=== PATIENT | female | born 1950 | race Caucasian/White ===

== ENCOUNTER 2016-07-22 19:50 | Inpatient (IN) | payer OTHER ==
--- NOTE | ~2016-07-22 | CN ---
Consultation Report [facility] [address] [place]. [address] NAME: ISI RICE : 54 STATUS : ADM Corinna PAT#: [id number] AGE: 66 ADM/REG DATE : 07/22/16 MR#: [id number] REPORT SERV DATE: 07/23/16 DICTATED BY: DEYVI BOOTH DATE: 07/23/16 REPORT STATUS : Draft TRANSCRIBED BY: MODL DATE: 07/23/16 GI CONSULTATION DATE OF CONSULTATION: 07/23/2016 REASON FOR CONSULTATION: Evaluation and management of upper GI bleeding. HISTORY OF PRESENT ILLNESS: Ms Isi Waggoner is a pleasant 66-year-old female patient, who has been seen by Dr. Silva in the distant past, who presented to [facility] with a chief complaint of nausea, vomiting, coffee-grounds emesis, as well as dark black stools. The patient gives a history of symptom onset yesterday with nausea and vomiting. She states she vomited up one episode of coffee-grounds. She had epigastric periumbilical abdominal pain. Subsequently, she began to have loose dark tarry stools. She states multiple, five to six. She was weak and felt like her heart was "pounding." She states that for two days, she has not been feeling well, but her pain and the bleeding started yesterday. She does have a history of right breast cancer, having undergone lumpectomy as well as radiation therapy, and currently is on Arimidex. She has a history of recent what she states it is an injury to her left leg. She has osteoarthritis and has been on Mobic for the last three weeks as well as she admits to taking around three to four Excedrin a week for various aches and pains. I have discussed with the patient, we will plan on upper endoscopy today. Risks, benefits, alternatives, and complications were detailed for her to include, but not limited to risk of bleeding, perforation, infection, reaction to medication, as well as cardiac and pulmonary side effects. She is agreeable to proceed. She does give a history of in 2014, she had an upper GI bleed secondary to duodenal ulcer, which was clipped while she was at [facility] undergoing treatment for her breast cancer. This procedure was done by Dr. Manzo. PAST MEDICAL HISTORY: She has a past medical history positive for right breast invasive ductal carcinoma. Undergoing right breast segmentectomy, right breast deep margin removal as well as axillary sentinel lymph node biopsy. Upper GI bleed secondary to peptic ulcer disease. She has a history of migraines, which she takes Excedrin for intra-ocular lens implants. Cardiac murmur, right partial knee replacement, osteoarthritis, cholecystectomy, GERD, IBS, appendectomy, hysterectomy, renal stones, rosacea, and depression. SOCIAL HISTORY: . Lives independently. Denies alcohol, tobacco, or illicits. Positive for NSAIDs. FAMILY HISTORY: Noncontributory from a GI standpoint. ALLERGIES: TORADOL, PHENOBARBITAL, CODEINE, TRAMADOL, AND PROTONIX. HOME MEDICATIONS: Arimidex, Mobic, and Excedrin. REVIEW OF SYSTEMS: Consultation Report [place] [address] [place]. [address] NAME: ISI RICE : 54 STATUS : ADM Corinna PAT#: [id number] AGE: 66 ADM/REG DATE : 07/22/16 MR#: [id number] REPORT SERV DATE: 07/23/16 DICTATED BY: DEYVI BOOTH DATE: 07/23/16 REPORT STATUS : Draft TRANSCRIBED BY: MODDallas DATE: 07/23/16 A 10-point review of systems has been obtained with pertinent positives being addressed in the history of present illness. PHYSICAL EXAMINATION: VITAL SIGNS: Temperature 98.6, pulse 88, respirations 20, and blood pressure is 150/65. NEUROLOGIC: Reveals an alert female, resting in bed with no focal deficits. GENERAL: Cooperative, in no apparent distress. Awake, alert, and oriented x3. HEAD, EARS, EYES, NOSE, AND THROAT: Anicteric. Pupils are equal, round, and reactive to light and accommodation. Normocephalic and atraumatic. NECK: No JVD. No palpable nodes. Supple. LUNGS: Diminished in the bases. Clear in the upper lobes. Normal respiratory effort exhibited. Equal expansion. CARDIOVASCULAR: Regular rate and rhythm. ABDOMEN: Soft, mildly tender to palpation in the epigastric region without rebound or guarding. No organomegaly appreciated. Active bowel sounds. EXTREMITIES: No edema. Normal distal pulses. SKIN: Warm, dry, and intact, but pale. PERTINENT LABORATORY DATA: Sodium 143, potassium 4.6, BUN is 36, and creatinine 0.91. White count 19, hemoglobin 10.9, hematocrit 33.1, and platelet count is 301, with an INR of 1.2. ASSESSMENT: 1. Upper gastrointestinal bleed, melena with coffee-ground emesis, acute onset, 07/22/2016. She has a history of Mobic use for the last three weeks as well as Excedrin intermittently for headaches. 2. Abdominal pain, epigastric. 3. Nausea and vomiting. 4. History of right breast cancer. 5. History of gastrointestinal bleed in 2014, treated by Dr. Manzo at [facility] with a "duodenal clip.". PLAN: 1. Reglan 10 mg IV x1 now. 2. Serial H and H. 3. EGD today. 4. Transfuse as needed. 5. Continue Protonix drip. We will follow. Other recommendations after endoscopy. NILSON/SUDHIR ANABEL Yousif Consultation Report [address] [place]. [address] NAME: ISI RICE : 54 STATUS : ADM Corinna PAT#: [id number] AGE: 66 ADM/REG DATE : 07/22/16 MR#: [id number] REPORT SERV DATE: 07/23/16 DICTATED BY: DEYVI BOOTH DATE: 07/23/16 REPORT STATUS : Draft TRANSCRIBED BY: SUDHIR DATE: 07/23/16 / [id number] CC: Daljit Parmar MD
--- NOTE | ~2016-07-22 | DS ---
Discharge Summary [place] [id number] [facility] [place]. [address] NAME: MARYCARMEN RICE : 54 STATUS : ADM Corinna PAT#: [id number] AGE: 66 ADM/REG DATE : 07/22/16 MR#: [id number] REPORT SERV DATE: 07/26/16 DICTATED BY: JACK PARMAR DATE: 07/26/16 REPORT STATUS : Draft TRANSCRIBED BY: MODL DATE: 07/26/16 ADMISSION DATE: 07/22/2016 DISCHARGE DATE: 07/26/2016 REASON FOR ADMISSION: Melena secondary to upper GI bleed. HISTORY OF PRESENT ILLNESS: Please refer to Dr. Ge Pinon's history and physical dated 07/23/2016, for complete details regarding the patient's admission. The patient is admitted to the hospitalist service for management and evaluation of her upper GI bleed. HOSPITAL COURSE: The patient presented with an upper GI bleed, started on Protonix drip. Dr. Babin with [facility] performed an EGD and found hematin in the gastric body and 1 duodenal ulcer that was spurting blood. He injected it and treated it by a fulguration and a clip was placed. Recommended continuing an IV Protonix drip for two more days. The patient's hemoglobin was continuously checked every eight hours. She did have a mild drop in hemoglobin and was transfused 1 unit of packed red blood cell which has been stable since then. Her Protonix was transitioned from IV drip to IV Protonix twice a day on the . Her hemoglobin has been stable. She has been tolerating a diet. She had some mild epigastric pain which has improved since admission. GI Medicine has signed off and recommended following up with Dr. Silva or Dr. Manzo at [facility] in 4 to 6 weeks for a CBC check. Dr. Babin recommended continuing Protonix 40 mg twice a day for 12 weeks. A prescription has been given to her. She has reached maximal hospitalization and will be discharged today in stable condition. DISCHARGE DIAGNOSES: 1. Melena secondary to upper GI bleed secondary to a duodenal ulcer, status post injection, fulguration, and clip. 2. Acute blood loss anemia status post packed red blood cell and now stable. 3. Nausea and vomiting resolved. 4. History of breast cancer, currently on Arimidex. PROCEDURES: Include EGD and packed red blood cell transfusion. CONSULTATION: With James MANUEL. DISCHARGE MEDICATIONS: Include Protonix 40 mg twice a day for 12 weeks; Arimidex 1 mg at bedtime; and Mobic 7.5 mg daily. She has been told to hold off on any NSAIDs. DICTATED BY: MD DEANNA Colmenares/SUDHIR Discharge Summary [address] [place] [address] NAME: MARYCARMEN RICE : 54 STATUS : ADM Corinna PAT#: [id number] AGE: 66 ADM/REG DATE : 07/22/16 MR#: [id number] REPORT SERV DATE: 07/26/16 DICTATED BY: JACK PARMAR DATE: 07/26/16 REPORT STATUS : Draft TRANSCRIBED BY: SUDHIR DATE: 07/26/16 Jack Parmar MD / [id number] CC: MD Cyndi Colmenares III, M.D.
--- NOTE | ~2016-07-22 | HP ---
History And Physical [place] [id number] [facility] [place]. [address] NAME: MARYCARMEN MARCH : 54 STATUS : ADM Corinna PAT#: [id number] AGE: 66 ADM/REG DATE : 07/22/16 MR#: [id number] REPORT SERV DATE: 07/23/16 DICTATED BY: GE DUDLEY DATE: 07/22/16 REPORT STATUS : Draft TRANSCRIBED BY: MODL DATE: 07/22/16 DATE OF ADMISSION: 07/22/2016 CHIEF COMPLAINT: Black tarry stools per rectum. HISTORY OF PRESENT ILLNESS: This is a 66-year-old female, who presents to the emergency room at [facility] with the above-mentioned complaint. History is obtained from the patient and reviewing data available on the [employer] system. According to Mrs. March it all started yesterday in the evening when she started feeling poorly. 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 In the vomitus, there was some black stuff according to her. Soon after she had to go to the bathroom and when she did she again threw up and then passed black tarry stools per rectum. She had two such episodes again and knew she was bleeding as she has had a history of peptic ulcer disease and has had GI bleeding in the past. She does not drive but managed to call one of her neighbors and was brought here to be evaluated. In the emergency room, indeed stool Hemoccult was positive. She had black tarry stools. She also had anemia probably secondary to a blood loss. An additional workup revealed she had leukocytosis and a lactate of 4.3 as well. Hospitalist Service has asked to admit her for further evaluation and treatment. At the time of my evaluation, she denied any chest pain or palpitations. She had no orthopnea. She has had no cough, hemoptysis, night sweats, or weight loss. She has had no falls or loss of consciousness. She denied any fevers or chills. Did have nausea and vomiting without any hematemesis or hematuria. No other history of recent travel or exposures other than those mentioned above. PAST MEDICAL HISTORY: Significant for history of peptic ulcer disease and gastrointestinal bleed in the past. SOCIAL HISTORY: She does not smoke, drink, or use recreational drugs. FAMILY HISTORY: Noncontributory. MEDICATIONS: At home were reviewed by me in the chart today and reordered by me. REVIEW OF SYSTEMS: As in history of present illness. All other systems were reviewed in detail and are quite unremarkable. PHYSICAL EXAMINATION: GENERAL: This is a pleasant 66-year old, not in any acute distress. HEENT: Head is atraumatic, normocephalic. She is alert, awake, oriented to time, place, and person. Pupils are equal, reacting to light and accommodating. External ocular muscles are intact. Membranes are moist and pink. Sclerae are nonicteric. History And Physical [address] [address] NAME: MARYCARMEN MARCH : 54 STATUS : ADM Corinna PAT#: [id number] AGE: 66 ADM/REG DATE : 07/22/16 MR#: [id number] REPORT SERV DATE: 07/23/16 DICTATED BY: GE DUDLEY DATE: 07/22/16 REPORT STATUS : Draft TRANSCRIBED BY: SUDHIR DATE: 07/22/16 NECK: Supple with no jugular venous distention, lymphadenopathy, or thyromegaly. LUNGS: Clear to auscultation with no wheezes, rubs, or crackles. HEART: Heart sounds were regular with no murmurs, rubs, or gallops. ABDOMEN: Soft, nontender. Bowel sounds are present. EXTREMITIES: Showed no cyanosis, clubbing, or edema. NEUROLOGIC: Grossly intact. No focal sensory or motor deficits. Higher functions appeared intact. Gait was not examined at this time. VITAL SIGNS: Her vital signs today showed a temperature of 98.0, pulse 123, respirations 18 a minute, blood pressure was 120/61, oxygen saturations were 96%, breathing 2 L of oxygen via nasal cannula. LABORATORY DATA: Reviewed on the [employer] system showed a sodium of 143, potassium 4.6, chloride 110, CO2 of 26, BUN 36, and creatinine was 0.91. Glucose was 266. CBC showed a white blood cell count of 19,000, hemoglobin was 10.9, hematocrit 33.1, and platelet count was 301,000. Her lactate level was 4.3 today. Urinalysis showed small leukocyte esterase, nitrite was negative. There were 16 wbc's and rare bacteria. No imaging was performed in the ER today. A 12-lead EKG done in emergency room was reviewed and interpreted by me. Per my interpretation, there is sinus tachycardia at a rate of [address] changes. Again stool Hemoccult was positive in the ER. IMPRESSION: 1. Melena. 2. Upper GI bleeding. 3. Anemia secondary to blood loss. 4. Leukocytosis. 5. Urinary tract infection. 6. History of GI bleed. 7. Peptic ulcer disease. PLAN: We will admit Mrs. March to the Hospitalist Service with telemetry for a 24-hour observation period. We will keep her n.p.o. for now. Start her on Protonix infusion and go ahead and consult Gastroenterology Service to see her in the morning. Meanwhile, we will follow serial hemoglobin and hematocrit levels, type cross and transfuse if needed. We will of course, stop her NSAIDs and other medications that she has been on. We will also start her on fluids for volume resuscitation. Follow chemistry and CBC in the morning. We will also place her on broad-spectrum IV antibiotics for possible urinary tract infection and again re-evaluate a CBC in the morning. We will place her on SCDs for DVT prophylaxis while she is here. I have discussed the above plans with the patient. Her questions were answered and she is agreeable to the above recommendations. Hospitalist Service will be following her during her stay here. /SUDHIR Ge Dudley M.D. History And Physical [address] [address] NAME: MARYCARMEN MARCH MICHAEL : 54 STATUS : ADM Corinna PAT#: [id number] AGE: 66 ADM/REG DATE : 07/22/16 MR#: [id number] REPORT SERV DATE: 07/23/16 DICTATED BY: GE DUDLEY DATE: 07/22/16 REPORT STATUS : Draft TRANSCRIBED BY: SUDHIR DATE: 07/22/16 / [id number] CC: Daljit Parmar MD
--- NOTE | ~2016-07-22 | EGD ---
EGD REPORT [facility] [address] [place]. [address] NAME: ISI MARCH : 54 STATUS : ADM Corinna PAT#: [id number] AGE: 66 ADM/REG DATE : 07/22/16 MR#: [id number] REPORT SERV DATE: 07/23/16 DICTATED BY: BRAD BELL DATE: 07/23/16 REPORT STATUS : Draft TRANSCRIBED BY: [facility] DATE: 07/23/16 Endoscopy Center Patient Name: Isi March Date of : 1950 Attending MD: BRAD BELL MD Procedure Date No Time: 07/23/2016 Procedure: Upper GI endoscopy Indications: Melena Medicines: Monitored Anesthesia Care Complications: No immediate complications. Estimated blood loss: Minimal. Procedure: Pre-Anesthesia Assessment: - ASA Grade Assessment: II - A patient with mild systemic disease. After obtaining informed consent, the endoscope was passed under direct vision. Throughout the procedure, the patient's blood pressure, pulse, and oxygen saturations were monitored continuously. The GIF [id number] was introduced through the mouth, and advanced to the second part of duodenum. The upper GI endoscopy was accomplished without difficulty. The patient tolerated the procedure well. Findings: The examined esophagus was normal. Hematin (altered blood/qepffq-mqagpm-plhr material) was found in the gastric body. One spurting cratered duodenal ulcer with a visible vessel was found in the first part of the duodenum. The lesion was 6 mm in largest dimension. Area was successfully injected with 3 mL of a 1:10,000 solution of epinephrine for hemostasis. Fulguration to stop the bleeding by bipolar probe was successful. To prevent bleeding post-intervention, one hemostatic clip was successfully placed. There was no bleeding at the end of the procedure. Estimated blood loss was minimal. The exam was otherwise without abnormality. Impression: - Hematin (altered blood/dpqayi-ceelfo-ooqu material) in the gastric body. - One duodenal ulcer spurting blood. Injected. Treated by fulguration. Clip was placed. - The examination was otherwise normal. Recommendation: - Return patient to [facility] for ongoing care. - Give Protonix (pantoprazole): 8 mg/hr IV by continuous infusion for 2 days. EGD REPORT [address] [address] NAME: ISI MARCH : 54 STATUS : ADM Corinna PAT#: [id number] AGE: 66 ADM/REG DATE : 07/22/16 MR#: [id number] REPORT SERV DATE: 07/23/16 DICTATED BY: BRAD BELL DATE: 07/23/16 REPORT STATUS : Draft TRANSCRIBED BY: [email or web address] DATE: 07/23/16 - NPO today. - Check hemoglobin q 8 hours until stable. Procedure Code(s): --- Professional --- 57038, Esophagogastroduodenoscopy, flexible, transoral; with control of bleeding, any method Diagnosis Code(s): --- Professional --- K92.2, Gastrointestinal hemorrhage, unspecified K26.4, Chronic or unspecified duodenal ulcer with hemorrhage K92.1, Melena CPT copyright 2013 [employer]. All rights reserved. The codes documented in this report are preliminary and upon linecasting machine keyboard operator review may be revised to meet current compliance requirements. Brad Bell MD BRAD BELL MD 07/23/2016 10:54 AM This report has been signed electronically. Number of Addenda: 0 Note Initiated On: 07/23/2016 10:09 AM Scope Withdrawal Time 0 hours 0 minutes 0 seconds [address] [place] [id number]
[2016-07-22 19:47] LABS: BASOPHILS 0.1 %; BASOPHILS ABSOLUTE 0.01 10/3/uL (0.0-0.16); EOSINOPHILS 0 %; IMMATURE GRANULOCYTES 0.3 %; IMMATURE GRANULOCYTES ABSOLUTE 0.06 10/3/uL (0.0-0.11); LYMPHOCYTES 8.8 %; LYMPHOCYTES ABSOLUTE 1.67 10/3/uL (0.67-4.30); MEAN CORPUS HGB CONC 32.9 g/dL (32.0-36.0); MEAN CORPUSCULAR VOLUME 91.2 fL (80-100); MEAN PLATELET VOLUME 10.5 fL (9.2-13.0); MONOCYTES 3.8 %; MONOCYTES ABSOLUTE 0.73 10/3/uL (0.21-1.20); NEUTROPHILS ABSOLUTE 16.51 10/3/uL (2.02-8.40)
[2016-07-22 19:48] LABS: HEMATOCRIT 33.1 % (36.0-48.0); HEMOGLOBIN 10.9 g/dL (12.0-16.0); MANUAL DIFF NO %; PLATELET COUNT 301 10/3/uL (150-400); RED CELL COUNT 3.63 10/6/uL (4.0-5.6)
[~2016-07-22 19:50] MED LIST: ARIMIDEX1 PO; ATEN25 PO; EFFEXXR75 PO; EXCEDRIN EXTRA1 EACH PO; EXCEDRIN MIGRA1 EAC1 PO; HIP INJECTION IM; IRON325 MG PO; LORT7 PO; LYRICA75 PO; MOBIC7.5 PO; PROTONIX PO; TRAZODONE150 MG PO; TRICOR145 PO; TRIFLURIDINE 1% OP; ZOCOR40 PO
[2016-07-22 20:07] LABS: PARTIAL THROMBO TIME 25.2 SEC (22.5-37.2)
[2016-07-22 20:08] LABS: A/G RATIO 1.1 (0.7-1.9); ALBUMIN 3.3 G/DL (3.5-5.0); CALCIUM, SERUM 8.7 MG/DL (8.5-10.4); CHLORIDE, SERUM 110 MMOL/L (96-112); CO2 (CARBON DIOXIDE) 26 MMOL/L (24-34); CREATININE 0.91 MG/DL (0.55-1.02); GFR AFRICAN AMERICAN 77 ML/MIN (>=60); GFR NON AFRICAN AMERICAN 67 ML/MIN (>=60); GLOBULIN 3.1 G/DL (2.5-4.1); POTASSIUM, SERUM 4.6 MMOL/L (3.5-5.3); SGOT(AST) 18 U/L (5-40); SGPT(ALT) 35 U/L (5-65); SODIUM, SERUM 143 MMOL/L (135-148); TOTAL PROTEIN 6.4 G/DL (6.0-8.5)
[2016-07-22 20:09] LABS: ALKALINE PHOSPHATASE 70 U/L (45-117); BUN (BLOOD UREA NITROGEN) 36 MG/DL (6-23); GLUCOSE, SERUM 266 MG/DL (60-99); TOTAL BILIRUBIN 0.4 MG/DL (0-1.2)
[2016-07-22 20:27] LABS: INTERNATIONAL NORMAL RATI 1.2 UNITS (-); PROTIME (NOT ORD) 14.9 SEC (12.0-14.5)
[2016-07-22 20:48] LABS: LACTATE 4.3 MMOL/L (0.3-2.4)
[2016-07-22 20:53] LABS: ASCORBIC ACID (UR NOT ORDER) 20 (NEG); BILIRUBIN, URINE NEGATIVE (NEG); ER URINALYSIS TAT 0 Hrs 07 Mins; KETONE, URINE TRACE MG/DL (NEG); LEUKOCYTE ESTERASE(NOT OR SMALL (NEG); NITRITE (URINE) NEG (NEG); WBC (NOT ORDERED) (RFLEX) 16 (0-5)
[2016-07-23 08:44] LABS: BASOPHILS 0.1 %; BASOPHILS ABSOLUTE 0.01 10/3/uL (0.0-0.16); EOSINOPHILS 0 %; HEMATOCRIT 24.2 % (36.0-48.0); HEMOGLOBIN 8.1 g/dL (12.0-16.0); IMMATURE GRANULOCYTES 0.4 %; IMMATURE GRANULOCYTES ABSOLUTE 0.06 10/3/uL (0.0-0.11); LYMPHOCYTES 17.6 %; LYMPHOCYTES ABSOLUTE 2.87 10/3/uL (0.67-4.30); MEAN CORPUS HGB CONC 33.5 g/dL (32.0-36.0); MEAN CORPUSCULAR HEMOGLOB 31.3 pg (26.0-34.0); MEAN CORPUSCULAR VOLUME 93.4 fL (80-100); MEAN PLATELET VOLUME 10.4 fL (9.2-13.0); MONOCYTES 5.4 %; MONOCYTES ABSOLUTE 0.89 10/3/uL (0.21-1.20); NEUTROPHILS 76.5 %; NEUTROPHILS ABSOLUTE 12.51 10/3/uL (2.02-8.40); PLATELET COUNT 246 10/3/uL (150-400); RBC DISTRIBUTION WIDTH 14.6 % (12.0-16.0); RED CELL COUNT 2.59 10/6/uL (4.0-5.6); WHITE BLOOD CELLS 16.3 10/3/uL (4.5-10.5)
[2016-07-23 08:46] LABS: MANUAL DIFF NO %
[2016-07-23 08:56] LABS: CHLORIDE, SERUM 116 MMOL/L (96-112); CO2 (CARBON DIOXIDE) 23 MMOL/L (24-34); CREATININE 0.66 MG/DL (0.55-1.02); GFR AFRICAN AMERICAN 108 ML/MIN (>=60); GFR NON AFRICAN AMERICAN 93 ML/MIN (>=60); PHOSPHORUS, SERUM 2.7 MG/DL (2.5-4.5); POTASSIUM, SERUM 4.9 MMOL/L (3.5-5.3); SODIUM, SERUM 144 MMOL/L (135-148)
[2016-07-23 08:58] LABS: BUN (BLOOD UREA NITROGEN) 25 MG/DL (6-23); CALCIUM, SERUM 7.7 MG/DL (8.5-10.4); GLUCOSE, SERUM 131 MG/DL (60-99)
[2016-07-23 14:19] LABS: HEMATOCRIT 23.7 % (36.0-48.0); HEMOGLOBIN 7.5 g/dL (12.0-16.0)
[2016-07-24 05:29] LABS: BASOPHILS 0.1 %; BASOPHILS ABSOLUTE 0.01 10/3/uL (0.0-0.16); EOSINOPHILS 0.6 %; EOSINOPHILS ABSOLUTE 0.06 10/3/uL (0.0-0.53); HEMATOCRIT 22.9 % (36.0-48.0); HEMOGLOBIN 7.7 g/dL (12.0-16.0); IMMATURE GRANULOCYTES 1.2 %; IMMATURE GRANULOCYTES ABSOLUTE 0.12 10/3/uL (0.0-0.11); LYMPHOCYTES 25.6 %; MEAN CORPUS HGB CONC 33.6 g/dL (32.0-36.0); MEAN CORPUSCULAR HEMOGLOB 30.2 pg (26.0-34.0); MEAN PLATELET VOLUME 10.2 fL (9.2-13.0); MONOCYTES 6.4 %; MONOCYTES ABSOLUTE 0.65 10/3/uL (0.21-1.20); NEUTROPHILS 66.1 %; NEUTROPHILS ABSOLUTE 6.73 10/3/uL (2.02-8.40); PLATELET COUNT 187 10/3/uL (150-400); RBC DISTRIBUTION WIDTH 15.5 % (12.0-16.0); RED CELL COUNT 2.55 10/6/uL (4.0-5.6); WHITE BLOOD CELLS 10.2 10/3/uL (4.5-10.5)
[2016-07-24 05:33] LABS: MANUAL DIFF NO %; MEAN CORPUSCULAR VOLUME 89.8 fL (80-100)
[2016-07-24 05:40] LABS: BUN (BLOOD UREA NITROGEN) 22 MG/DL (6-23); CALCIUM, SERUM 7.6 MG/DL (8.5-10.4); CHLORIDE, SERUM 114 MMOL/L (96-112); CO2 (CARBON DIOXIDE) 26 MMOL/L (24-34); CREATININE 0.74 MG/DL (0.55-1.02); GFR AFRICAN AMERICAN 99 ML/MIN (>=60); GFR NON AFRICAN AMERICAN 86 ML/MIN (>=60); SODIUM, SERUM 145 MMOL/L (135-148)
[2016-07-24 05:41] LABS: GLUCOSE, SERUM 103 MG/DL (60-99); POTASSIUM, SERUM 3.9 MMOL/L (3.5-5.3)
[2016-07-24 11:50] LABS: HEMOGLOBIN 7.5 g/dL (12.0-16.0)
[2016-07-24 20:37] LABS: HEMOGLOBIN 8.9 g/dL (12.0-16.0)
[2016-07-24 20:38] LABS: HEMATOCRIT 26.7 % (36.0-48.0)
[2016-07-25 05:12] LABS: HEMATOCRIT 25.4 % (36.0-48.0); HEMOGLOBIN 8.8 g/dL (12.0-16.0)
[2016-07-25 16:10] LABS: HEMATOCRIT 26.4 % (36.0-48.0); HEMOGLOBIN 8.7 g/dL (12.0-16.0)
[2016-07-26 07:17] LABS: HEMATOCRIT 28.1 % (36.0-48.0); HEMOGLOBIN 9.4 g/dL (12.0-16.0)
[2016-07-26] MEDS ORDERED: PROTONIX PO (13:24)
== END 2016-07-26 17:15 | disposition home or self-care (01) | DRG 378 ==
LOC: ER 19:50 → 5SO 21:20
PROVIDERS: Emergency Medicine; Internal Medicine Gastroenterology; Internal Medicine Pulmonary Disease; Nurse Practitioner Family
PROC: 0W3P8ZZ Control Bleeding in Gastrointestinal Tract, Via Natural or Artificial Opening Endoscopic (ICD-10-PCS; principal; 2016-07-23 10:17)
PROC: 30233N1 Transfusion of Nonautologous Red Blood Cells into Peripheral Vein, Percutaneous Approach (ICD-10-PCS; 2016-07-24)
DX: K26.4 Chronic or unspecified duodenal ulcer with hemorrhage (principal); D62 Acute posthemorrhagic anemia; M19.90 Unspecified osteoarthritis, unspecified site; Z85.3 Personal history of malignant neoplasm of breast; Z79.1 Long term (current) use of non-steroidal anti-inflammatories (NSAID); Z79.811 Long term (current) use of aromatase inhibitors; Z79.899 Other long term (current) drug therapy
CPT/HCPCS: 36415; 36430; 71010; 80048; 80053; 81001; 83605; 83735; 84100; 84145; 85014; 85018; 85025; 85610; 85730; 86850; 86900; 86901; 86920; 87086; 93005; 96374; 96375; 96376; 99291; A9270-GY; C9113; G0378; J2405; J2550; J2765; P9016